=== PATIENT | male | born 1995 | race African-American/Black ===

== ENCOUNTER 2020-06-05 13:24 | Emergency (ER) | payer SELFPAY ==
[2020-06-05] MEDS ORDERED: HYDROCODONE/ACETAMINOPHEN 5-325 MG TABLET PO ONE ×2 (14:02→17:00)
[2020-06-05 14:18] LABS: ABSOLUTE BASOPHILS # (AUTO) 0.1 10^3/uL (0.0-0.2); ABSOLUTE EOSINOPHILS # (AUTO) 0.2 10^3/uL (0.0-0.6); ABSOLUTE LYMPHOCYTES (AUTO) 1.9 10^3/uL (0.5-4.7); ABSOLUTE MONOCYTES (AUTO) 1.1 10^3/uL (0.1-1.4); ABSOLUTE NEUT (AUTO) 15.1 10^3/uL (1.7-8.2); BASOPHILS % (AUTO) 0.5 % (0-2); EOSINOPHILS % (AUTO) 0.9 % (0-6); HEMOGLOBIN 13.2 g/dL (13.5-17.0); LYMPHOCYTES % (AUTO) 10.2 % (13-45); MEAN CORPUSCULAR HEMOGLOBIN 25.7 pg (27.0-33.4); MEAN CORPUSCULAR VOLUME 78 fl (80-97); PLATELET COUNT 275 10^3/uL (150-450); RED BLOOD COUNT 5.14 10^6/uL (4.35-5.55); RED CELL DISTRIBUTION WIDTH 14.6 % (11.5-14.0); SEGMENTED NEUTROPHILS % (AUTO) 82.4 % (42-78); TOTAL CELLS COUNTED % (AUTO) 100 %; WHITE BLOOD COUNT 18.3 10^3/uL (4.0-10.5)
--- NOTE | 2020-06-05 14:20 | ER Document Report ---
ED Medical Screen (RME) - General Chief Complaint: Abscess Stated Complaint: ABSCESS Time Seen by Provider: 06/05/20 14:01 - HPI Notes: 06/05/20 14:03 24-year-old male presents the emergency room for evaluation of a abscess to his right axilla for the last 5 days. Tried [id number] treatments without relief. Reports pain is 5 out of 5. Unsure of his history of MRSA. Worse with time, nothing makes better. Patient states swelling extends down to his right upper arm, he is unable to lift his right arm due to immense pain. Denies any numbness or tingling. Denies any fevers or chills. Has not tried any heat to site I have greeted and performed a rapid initial assessment of this patient. A comprehensive ED assessment and evaluation of the patient, analysis of test results and completion of the medical decision making process will be conducted by additional ED providers. PHYSICAL EXAMINATION: GENERAL: Well-appearing, well-nourished and in no acute distress. Musculoskeletal: Limited range of motion to right arm and right shoulder due to pain, noted drainage from abscess. NEUROLOGICAL: Normal speech, normal gait. SKIN: Warm, Dry, normal turgor, no rashes or lesions noted. - Related Data Allergies/Adverse Reactions: No Known Allergies Allergy (Verified 06/05/20 13:57) Physical Exam - Vital signs Vitals: Temp Pulse Resp BP Pulse Ox 97.4 F 103 H 20 129/73 H 96 06/05/20 13:28 06/05/20 13:28 06/05/20 13:28 06/05/20 13:28 06/05/20 13:28 Course - Vital Signs Vital signs: Temp Pulse Resp BP Pulse Ox 97.4 F 103 H 20 129/73 H 96 06/05/20 13:28 06/05/20 13:28 06/05/20 13:28 06/05/20 13:28 06/05/20 13:28 - Laboratory Lab Results Review: Normal Lab Results Reviewed - NO LABS RESULTED
[2020-06-05 14:35] LABS: ALBUMIN 3.9 g/dL (3.5-5.0); ALKALINE PHOSPHATASE 104 U/L (38-126); ANION GAP 6 (5-19); ASPARTATE AMINO TRANSFERASE 31 U/L (17-59); BILIRUBIN,DIRECT 0.1 mg/dL (0.0-0.4); BILIRUBIN,TOTAL 0.5 mg/dL (0.2-1.3); BLOOD UREA NITROGEN 12 mg/dL (7-20); CALCIUM 9.5 mg/dL (8.4-10.2); CARBON DIOXIDE 31 mmol/L (22-30); CHLORIDE 102 mmol/L (98-107); GLUCOSE 113 mg/dL (75-110); POTASSIUM 3.9 mmol/L (3.6-5.0); TOTAL PROTEIN 7.4 g/dL (6.3-8.2)
[2020-06-05] MEDS ORDERED: LIDOCAINE 1%/EPINEPHRINE INJ 20 ML VIAL INJ ONE (17:08)
[2020-06-05] MEDS ORDERED: KETOROLAC TROMETHAMINE 60 MG/2 ML SDV IM ONE (17:10)
[2020-06-05] MEDS ORDERED: CEFTRIAXONE INJ 1000 MG VIAL IM ONE (17:11)
[2020-06-05] MEDS ORDERED: SULFAMETHOXAZOLE/TRIMETHOPRIM 800-160 MG TABLET PO ONE (17:11)
--- NOTE | 2020-06-05 17:12 | ER Document Report ---
ED Skin Rash/Insect Bite/Abscs - General Chief Complaint: Abscess Stated Complaint: ABSCESS Time Seen by Provider: 06/05/20 14:01 - HPI Notes: 24-year-old male presents to ED for evaluation of abscess under the right axillary region for over 1 week. He tried [id number] medications without improvement. Denies fever chills. Reports decreased range of motion of the right shoulder as well as moving the right upper arm. Notes that he has had these occur in the past. Denies a MRSA history that he is aware of. Denies any chest pain or shortness of breath. Denies recent sick contacts. Patient reports that he has undergone excision and drainage for these in the past. Uncertain of culture results. Patient does not regularly follow-up with a primary care provider. No recent courses of antibiotic management. - Related Data Allergies/Adverse Reactions: No Known Allergies Allergy (Verified 06/05/20 13:57) Past Medical History - Social History Smoking Status: Current Some Day Smoker Drug Abuse: Marijuana Family History: None Review of Systems - Review of Systems Notes: Constitutional: Negative for fever. HENT: Negative for sore throat. Eyes: Negative for visual changes. Cardiovascular: Negative for chest pain. Respiratory: Negative for shortness of breath. Gastrointestinal: Negative for abdominal pain, vomiting or diarrhea. Genitourinary: Negative for dysuria. Musculoskeletal: Negative for back pain. Skin: + for abscess to the right axillary region. Neurological: Negative for headaches, weakness or numbness. 10 point ROS negative except as marked above and in HPI. Physical Exam - Vital signs Vitals: Temp Pulse Resp BP Pulse Ox 97.4 F 103 H 20 129/73 H 96 06/05/20 13:28 06/05/20 13:28 06/05/20 13:28 06/05/20 13:28 06/05/20 13:28 General Appearance: No acute distress. A&Ox3 sitting comfortably on a stretcher. Skin: No pallor, jaundice, erythema, or ecchymosis. 7 cm area of fluctuance to right axillary region with erythema and warmth. Purulent drainage from distal lower aspect of abscess. HEENT: Normocephalic atraumatic pupils are equal round reactive to light and a ccommodation extraocular movements are intact. TMs without erythema or bulging. Canals are clear. Nares without any discharge. Mouth teeth in good condition. Uvula is midline airway is patent. Neck is supple without lymphadenopathy. No meningeal signs are noted. Chest: Clear to auscultation bilaterally. No wheezing rales or rhonchi. Equal inspiratory effort. Heart: S1-S2. Regular rate and rhythm no murmurs rubs or gallops. Abdomen: Soft, nontender, nondistended. Positive bowel sounds in all 4 qu adrants. No tenderness to palpation, no hepatosplenomegaly, no masses. No rebound. No guarding. No p eritoneal signs. Back: No midline spinal tenderness. No CVA tenderness bilaterally. Musculoskeletal: Moving all extremities without discomfort. No edema or atrophy. No deformities. Neuro: GCS 15 cranial nerves II through XII are intact. Psych: Mood and affect appropriate. Course - Re-evaluation Re-evalutation: 06/05/20 19:30 24-year-old male presents to ED for evaluation of abscess to the right axillary region for the last week. Patient has not been on antibiotics. Patient does have a large area of fluctuance to the right axillary region. Patient was evaluated with labs which were obtained in triage. He does have leukocytosis of 19. He was advised of these findings. Incision and drainage of abscess was performed. Wound culture is pending. Had markedly improved for relief of symptoms after incision and drainage. Patient is advised to apply warmth compresses and bacitracin dressings to the area. Patient is started on Bactrim and keflex with Rocephin IM provided in the emergency department. Also started on pain relief and anti-inflammatory medications. Patient is advised of possible MRSA infection. Patient will follow up with primary care for wound check and return if worsening of symptoms. Patient understands indications to return to the ER. Patient is agreeable with this plan. 06/05/20 19:49 - Vital Signs Vital signs: Temp Pulse Resp BP Pulse Ox 98.3 F 86 16 119/74 97 06/05/20 19:30 06/05/20 19:30 06/05/20 19:30 06/05/20 19:30 06/05/20 19:30 - Laboratory Results Result Diagrams: 06/05/20 14:07 06/05/20 14:07 Laboratory Results Interpreted: 06/05/20 06/05/20 14:07 14:07 WBC 18.3 H Hgb 13.2 L MCV 78 L MCH 25.7 L RDW 14.6 H Lymph % (Auto) 10.2 L Absolute Neuts (auto) 15.1 H Seg Neutrophils % 82.4 H Carbon Dioxide 31 H Glucose 113 H ALT 64 H Critical Laboratory Results Reviewed: No Critical Results - I reviewed the results and initiated antibiotic management. - Radiology Results Critical Radiology Results Reviewed: No Critical Results Procedures - Incision and Drainage Right Proximal Arm Time completed: 18:35 Type: Complex Anesthetic type: 1% Lidocaine w/epi mL's of anesthetic: 9 Blade size: 11 I&D procedure: Betadine prep applied Incision Method: Incision made by scalpel Amount/type of drainage: 30ml Notes: 06/05/20 19:49 Large amount of pus expressed from abscess. Loculations gently broken. Discharge - Discharge Clinical Impression: Abscess of right axilla Condition: Stable Disposition: HOME, SELF-CARE Additional Instructions: Hot pack area 2-3 times daily. Please return for wound care follow-up in 2 days if unable to be seen by primary care physician. Please complete full course of antibiotics. Return for any new or worsening symptoms. Prescriptions: Sulfamethoxazole/Trimethoprim [Bactrim Ds Tablet] 1 each PO BID 10 Days #20 tablet Cephalexin Monohydrate [Keflex 500 mg Capsule] 500 mg PO Q6H #40 capsule Hydrocodone/Acetaminophen [[place] 7.5-325 mg Tablet] 1 tab PO TID #12 tablet Forms: Return to Work
[2020-06-05] MEDS ORDERED: LIDOCAINE 1% INJ-PF (10 MG/ML) 30 ML SDV ONE (18:10)
[2020-06-05 19:39] VITALS: BP 119/74
== END 2020-06-05 19:30 | disposition home or self-care (01) ==
LOC: ER 13:24
DX: L02.411 Cutaneous abscess of right axilla (principal); F17.200 Nicotine dependence, unspecified, uncomplicated
CPT/HCPCS: 99284; 96372; 36415; 87070; 87205; 85025; 80053; 10061; J1885; J3490 ×2; J0696